=== PATIENT | female | born 1945 | race African-American/Black ===

== ENCOUNTER → 2017-03-31 | Outpatient (CLI) | payer OTHER ==
[~2017-03-31] MED LIST: NOHOMEMEDS; TYLENOL WITH C1 EACH PO
== END | disposition home or self-care (01) ==
LOC: RAD 12:35 → EKG 14:00
DX: I05.1 Rheumatic mitral insufficiency (principal); I07.1 Rheumatic tricuspid insufficiency; I70.0 Atherosclerosis of aorta; I06.0 Rheumatic aortic stenosis; R94.31 Abnormal electrocardiogram [ECG] [EKG]
CPT/HCPCS: 93306; 93880